=== PATIENT | male | born 1950 | race African-American/Black ===

== ENCOUNTER 2019-03-06 11:21 | Inpatient (IN) | payer MEDICARE, MEDICAID ==
[~2019-03-06] VITALS: Ht 185.4 cm; Wt 102.1 kg
[~2019-03-06 11:21] MED LIST: DIPHENHYDRAMINE; GABAPENTIN; GLIPIZIDE; HALOPERIDOL; METFORMIN; OLANZAPINE; TYLENOL
[2019-03-06] MEDS ORDERED: SODIUM CHLORIDE 0.9% 1,000 ML IV ONE (11:28)
[2019-03-06 11:49] LABS: BASOPHILS % 0.3 % (0.0-2.0); HEMATOCRIT. 37.7 % (42.0-52.0); HEMOGLOBIN. 13.3 g/dL (14.0-18.0); LYMPHOCYTES % 39.6 % (20.0-50.0); MEAN CORPUSCULAR HEMOGLOBIN 31.1 pg (28.0-32.0); MEAN CORPUSCULAR VOLUME 88.6 fL (80.0-94.0); MEAN PLATELET VOLUME 8.7 fl (7.4-10.4); MONOCYTES % 5.2 % (2.0-8.0); NEUTROPHILS % 53.9 % (40.0-76.0); PLATELET 102 x1000/uL (130-400); RED BLOOD CELL COUNT 4.26 mill/uL (4.7-6.1); RED CELL DISTRIBUTION WIDTH 14.8 % (11.6-14.6)
[2019-03-06 11:55] LABS: CHLORIDE 104 mEq/L (98-107)
[2019-03-06 11:57] LABS: INR 1.1; PARTIAL THROMBOPLASTIN TIME 24.3 sec (23.4-31.0); PROTHROMBIN TIME 11.7 sec (9.6-11.0)
[2019-03-06] MEDS ORDERED: IOHEXOL-350 100 ML BOTTLE ONE (12:35)
[2019-03-06 16:00] VITALS: BP 117/62
[2019-03-06] MEDS ORDERED: IPRATROPIUM/ALBUTEROL 0.5-3(2.5)MG/3ML NEB INH PRN (17:30)
[2019-03-06] MEDS ORDERED: MAGNESIUM/ALUMINUM HYDROXIDE/SIMETHICONE 30ML UDC PO PRN (17:30)
[2019-03-06] MEDS ORDERED: MAGNESIUM HYDROXIDE 400MG/5ML 30ML UDC PO PRN (17:30)
[2019-03-06] MEDS ORDERED: ACETAMINOPHEN 325MG TABLET PO PRN (17:30)
[2019-03-06] MEDS ORDERED: DIPHENHYDRAMINE 50MG/ML VIAL IV PRN (17:30)
[2019-03-06] MEDS ORDERED: CLONIDINE 0.1MG TABLET PO PRN (17:30)
[2019-03-06] MEDS ORDERED: ONDANSETRON HCL 4MG/2ML INJ IV PRN (17:30)
[2019-03-06] MEDS ORDERED: DEXTROSE 50% WATER 50ML SYRINGE IV PRN (17:30)
[2019-03-06] MEDS: BLOOD SUGAR DIAGNOSTIC STRIP TEST SCH ×2 (17:40→21:04)
[2019-03-06 18:00] VITALS: BP 117/62
[2019-03-06] MEDS: INSULIN LISPRO 100 UNITS/ML SUBCUT SCH ×2 (18:10→21:00)
[2019-03-06 20:00] VITALS: BP 122/76
[2019-03-06] MEDS ORDERED: ACET-2178 PO (20:22)
[2019-03-06] MEDS ORDERED: OLAN5TAB26 PO (20:22)
[2019-03-06] MEDS ORDERED: GLIP5TAB12 PO (20:22)
[2019-03-06] MEDS: ENOXAPARIN 40MG/0.4ML SYR SUBCUT SCH (21:04)
[2019-03-06] MEDS: SODIUM CHLORIDE 0.9% INJ 3ML FLUSH IVF SCH (21:09)
[2019-03-06] MEDS: METFORMIN HCL 500MG TABLET PO SCH (21:12)
[2019-03-06] MEDS ORDERED: ASPI-1159 PO (21:14)
[2019-03-06] MEDS ORDERED: METF-416 PO (21:14)
[2019-03-07] VITALS: BP 111/68
[2019-03-07 04:00] VITALS: BP 130/73
[2019-03-07] MEDS: SODIUM CHLORIDE 0.9% INJ 3ML FLUSH IVF SCH ×3 (05:29→20:32)
[2019-03-07 06:08] LABS: CHLORIDE 107 mEq/L (98-107)
[2019-03-07 06:14] LABS: PHOSPHORUS 3.3 mg/dL (2.5-4.9)
[2019-03-07] MEDS: BLOOD SUGAR DIAGNOSTIC STRIP TEST SCH ×4 (06:23→20:24)
[2019-03-07 08:00] VITALS: BP 143/69
[2019-03-07] MEDS: METFORMIN HCL 500MG TABLET PO SCH ×2 (08:01→08:09)
[2019-03-07 08:06] LABS: BASOPHILS % 0.4 % (0.0-2.0); EOSINOPHILS % 1.3 % (0.0-5.0); HEMATOCRIT. 36.4 % (42.0-52.0); HEMOGLOBIN. 12.8 g/dL (14.0-18.0); LYMPHOCYTES % 44.8 % (20.0-50.0); MEAN CORPUSCULAR VOLUME 88.1 fL (80.0-94.0); MEAN PLATELET VOLUME 8.7 fl (7.4-10.4); MONOCYTES % 6.1 % (2.0-8.0); NEUTROPHILS % 47.4 % (40.0-76.0); PLATELET 100 x1000/uL (130-400); RED BLOOD CELL COUNT 4.13 mill/uL (4.7-6.1); RED CELL DISTRIBUTION WIDTH 14.9 % (11.6-14.6)
[2019-03-07] MEDS: GLYBURIDE 5MG TABLET PO SCH (08:09)
[2019-03-07] MEDS: INSULIN LISPRO 100 UNITS/ML SUBCUT SCH ×4 (08:10→20:24)
[2019-03-07] MEDS: OLANZAPINE 5MG TABLET PO SCH (08:54)
[2019-03-07] MEDS ORDERED: MAGNESIUM 2 G PREMIX 50 ML IV ONE (11:30)
[2019-03-07 11:42] LABS: CLARITY URINE CLEAR (CLEAR); COLOR URINE YELLOW (YELLOW); KETONES URINE TRACE (NEGATIVE); LEUKOCYTE ESTERASE URINE NEGATIVE (NEGATIVE); NITRITE URINE NEGATIVE (NEGATIVE); OCCULT BLOOD URINE NEGATIVE (NEGATIVE); PH URINE 6.5 (4.5-8.0); PROTEIN URINE NEGATIVE (NEGATIVE); SPECIFIC GRAVITY URINE 1.033 (1.005-1.030)
[2019-03-07 12:00] VITALS: BP 125/71
[2019-03-07 16:00] VITALS: BP 152/69
[2019-03-07 20:00] VITALS: BP 142/67
[2019-03-07] MEDS: ENOXAPARIN 40MG/0.4ML SYR SUBCUT SCH (20:20)
[2019-03-08] VITALS: BP 140/69
[2019-03-08 00:46] LABS: *AMPHETAMINES SCREEN URINE NEGATIVE (NEGATIVE); *BARBITURATES SCREEN URINE NEGATIVE (NEGATIVE); *BENZODIAZEPINES SCREEN URINE NEGATIVE (NEGATIVE); *COCAINE SCREEN URINE NEGATIVE (NEGATIVE); METHADONE URINE SCREEN NEGATIVE (NEGATIVE); OPIATES URINE SCREEN NEGATIVE (NEGATIVE)
[2019-03-08 00:47] LABS: CANNABINOID URINE SCREEN NEGATIVE (NEGATIVE); PHENCYCLIDINE URINE SCREEN NEGATIVE (NEGATIVE)
[2019-03-08 04:00] VITALS: BP 131/71
[2019-03-08] MEDS: BLOOD SUGAR DIAGNOSTIC STRIP TEST SCH ×3 (05:50→17:23)
[2019-03-08] MEDS: SODIUM CHLORIDE 0.9% INJ 3ML FLUSH IVF SCH ×2 (06:24→14:00)
[2019-03-08 08:00] VITALS: BP 128/71
[2019-03-08] MEDS: GLYBURIDE 5MG TABLET PO SCH (09:08)
[2019-03-08] MEDS: METFORMIN HCL 500MG TABLET PO SCH ×2 (09:08→17:18)
[2019-03-08] MEDS: INSULIN LISPRO 100 UNITS/ML SUBCUT SCH ×3 (09:09→17:23)
[2019-03-08] MEDS: OLANZAPINE 5MG TABLET PO SCH (09:12)
[2019-03-08] MEDS ORDERED: OLAN5TAB3 MT (14:46)
[2019-03-08 14:47] VITALS: BP 130/71
== END 2019-03-08 18:17 | disposition home health service (06) | DRG 74 ==
LOC: ER 11:21 → EDBEDREQ 13:10 → ENRESERV 14:01 → ER 15:00 → 7WST 15:25
PROVIDERS: ADMIT Internal Medicine; ATTEND Internal Medicine
DX: G90.8 Other disorders of autonomic nervous system (principal); E11.9 Type 2 diabetes mellitus without complications; E83.42 Hypomagnesemia; F31.9 Bipolar disorder, unspecified; I11.9 Hypertensive heart disease without heart failure; I25.10 Atherosclerotic heart disease of native coronary artery without angina pectoris; Z86.73 Personal history of transient ischemic attack (TIA), and cerebral infarction without residual deficits; Z79.84 Long term (current) use of oral hypoglycemic drugs; Z87.891 Personal history of nicotine dependence
CPT/HCPCS: 36415; 71045; 71275; 80048; 80305; 82962; 83036; 83735; 83880; 84100; 84443; 84484; 93005; 93306; 93970; 96372; 96374; 97161; 99285; J1650; J1815; J3475; J7030; Q9967

== ENCOUNTER 2022-10-16 03:46 | Emergency (ER) | payer MEDICARE, MEDICAID ==
[~2022-10-16] VITALS: Ht 188 cm; Wt 95.0 kg
[~2022-10-16 03:46] MED LIST changes: +ASPI-1497 PO; -DIPHENHYDRAMINE; -GABAPENTIN; +GLIP5TAB12 PO; -GLIPIZIDE; -HALOPERIDOL; +METF-416 PO; -METFORMIN; +OLAN5TAB3 MT; +OLAN5TAB74 PO; -OLANZAPINE; +TOPUD PO; -TYLENOL
[2022-10-16] MEDS ORDERED: LEVETIRACETAM 500MG TABLET PO ONE (06:45)
[2022-10-16 06:57] LABS: BASOPHILS % 0.4 % (0.0-2.0); EOSINOPHILS % 1.3 % (0.0-5.0); HEMATOCRIT. 36.8 % (42.0-52.0); HEMOGLOBIN. 12.9 g/dL (14.0-18.0); LYMPHOCYTES % 40.5 % (20.0-50.0); MEAN CORPUSCULAR HEMOGLOBIN 32.1 pg (28.0-32.0); MEAN CORPUSCULAR VOLUME 91.3 fL (80.0-94.0); MEAN PLATELET VOLUME 9.1 fl (7.4-10.4); MONOCYTES % 6.7 % (2.0-8.0); NEUTROPHILS % 51.1 % (40.0-76.0); PLATELET 119 x1000/uL (130-400); RED BLOOD CELL COUNT 4.03 mill/uL (4.7-6.1); RED CELL DISTRIBUTION WIDTH 15.7 % (11.6-14.6)
[2022-10-16 07:12] LABS: CHLORIDE 108 mEq/L (98-107)
[2022-10-16 10:47] VITALS: BP 144/70
== END 2022-10-16 13:51 | disposition home or self-care (01) ==
LOC: ER 03:46
DX: R56.9 Unspecified convulsions (principal); E11.9 Type 2 diabetes mellitus without complications; I10 Essential (primary) hypertension; Z86.73 Personal history of transient ischemic attack (TIA), and cerebral infarction without residual deficits; Z79.899 Other long term (current) drug therapy
CPT/HCPCS: 36415; 80053; 85025; 93005; 99285

== ENCOUNTER 2022-11-10 03:55 | Emergency (ER) | payer MEDICARE, MEDICAID ==
[~2022-11-10] VITALS: Ht 190.5 cm; Wt 100.0 kg
[2022-11-10 03:58] VITALS: BP 158/98
[2022-11-10] MEDS ORDERED: ACETAMINOPHEN 325MG TABLET PO ONE (08:45)
[2022-11-10] MEDS ORDERED: TOPUD MT (10:36)
[2022-11-10] MEDS ORDERED: BENZ100C86 MT (11:17)
== END 2022-11-10 11:00 | disposition home or self-care (01) ==
LOC: ER 03:55
DX: M54.89 Other dorsalgia (principal); S20.211A Contusion of right front wall of thorax, initial encounter; S20.312A Abrasion of left front wall of thorax, initial encounter; R60.0 Localized edema; W01.0XXA Fall on same level from slipping, tripping and stumbling without subsequent striking against object, initial encounter; Y93.01 Activity, walking, marching and hiking; Y92.89 Other specified places as the place of occurrence of the external cause
CPT/HCPCS: 71100; 93971; 99284

== ENCOUNTER 2022-11-17 07:59 | Emergency (ER) | payer MEDICARE, MEDICAID ==
[~2022-11-17] VITALS: Ht 185.4 cm; Wt 91.0 kg
[~2022-11-17 07:59] MED LIST changes: +BENZ100C86 MT; +TOPUD MT
[2022-11-17 08:35] VITALS: BP 150/70
== END 2022-11-17 08:43 | disposition home or self-care (01) ==
LOC: ER 08:09
DX: M79.662 Pain in left lower leg (principal); M79.661 Pain in right lower leg; I11.0 Hypertensive heart disease with heart failure; I50.9 Heart failure, unspecified; E11.9 Type 2 diabetes mellitus without complications; Z79.84 Long term (current) use of oral hypoglycemic drugs; Z88.0 Allergy status to penicillin
CPT/HCPCS: 93005; 99283